=== PATIENT | female | born 1990 | race Caucasian/White ===

== ENCOUNTER 2021-08-07 21:42 | Emergency (ER) | payer OTHER ==
[~2021-08-07] VITALS: Ht 160 cm; Wt 59.0 kg
[2021-08-07] MEDS ORDERED: ZYPREXA PO (22:16)
[2021-08-07] MEDS ORDERED: VYVANSE50 MG PO (22:19)
[2021-08-07] MEDS ORDERED: WELLBUTRIN150 M1 PO (22:19)
[2021-08-07 22:30] LABS: HEMATOCRIT 37.3 % (37.0-47.0); HEMOGLOBIN 12.1 g/dl (12.0-16.0); IMMATURE GRANULOCYTES 0.1 % (0.0-5.0); MEAN CELL VOLUME 93.7 fL CALC (80.0-100.0); MEAN CORPUSCULAR HGB 30.4 pG CALC (26.0-32.0); MEAN CORPUSCULAR HGB CONC 32.4 g/dL CAL (32.0-36.0); NEUT# 7.7 thou/uL (2.00-7.15); RED BLOOD COUNT 3.98 mill/uL (4.20-5.60); RED CELL DISTRI WIDTH 12.7 % (11.5-15.5)
[2021-08-07 22:42] LABS: HCG SERUM/URINE (NEG/POS) NEGATIVE (NEGATIVE)
[2021-08-07 23:00] LABS: ACT PARTIAL THROMBO TIME 27.6 SECONDS (20.0-32.5); INTERNATIONAL NORMALIZED RATIO 0.9 RATIO (0.7-1.3); PROTHROMBIN TIME 9.9 SECONDS (9.0-12.5)
[2021-08-07 23:02] LABS: ALKALINE PHOSPHATASE 77 u/l (38-126); ANION GAP 11 (6-22 (CALC)); BILIRUBIN, TOTAL 0.3 mg/dL (0.0-1.4); BUN 8 mg/dL (7-17); BUN/CREATININE RATIO 11 (12-20 (CALC)); CARBON DIOXIDE 27 mmol/l (22-30); CHLORIDE 107 mmol/l (95-108); CREATININE 0.7 mg/dL (0.5-1.0); GFR > 60 ML/MIN (>=60 (CALC)); GFR FOR AFR.AMER. > 60 ML/MIN (>=60 (CALC)); POTASSIUM 3.8 mmol/l (3.5-5.1); SGOT/AST 22 u/l (14-36); SODIUM 142 mmol/l (137-146); TOTAL PROTEIN 6.8 g/dL (6.3-8.2)
[2021-08-07 23:11] LABS: D-DIMER 0.43 mg/L (0.19-0.60)
[2021-08-07] MEDS ORDERED: VOLTAREN75 MG PO (23:16)
[2021-08-07 23:17] VITALS: BP 120/62
== END 2021-08-07 23:28 | disposition home or self-care (01) ==
LOC: ED 21:42
PROVIDERS: Family Medicine
DX: R07.89 Other chest pain (principal); F17.210 Nicotine dependence, cigarettes, uncomplicated; Z87.01 Personal history of pneumonia (recurrent); Z20.822 Contact with and (suspected) exposure to COVID-19

== ENCOUNTER 2024-09-07 13:22 | Emergency (ER) | payer MEDICARE, MEDICAID ==
[~2024-09-07] VITALS: Ht 160 cm; Wt 49.9 kg
[~2024-09-07 13:22] MED LIST: VOLTAREN75 MG PO; VYVANSE50 MG PO; WELLBUTRIN150 M1 PO; ZYPREXA PO
[2024-09-07 14:49] VITALS: BP 113/63
[2024-09-07] MEDS ORDERED: Diph, Acellular Pertussis, Tet 0.5 ML/VIAL (Tdap) SDV IM STA (14:49)
[2024-09-07] MEDS ORDERED: AMOXICILLIN & POT CLAVULANATE 875 MG/TAB PO ONE (14:50)
[2024-09-07] MEDS ORDERED: NAPROXEN 250 MG/TAB PO ONE (14:55)
[2024-09-07] MEDS ORDERED: traMADol HCL 50 MG/TAB PO ONE (14:55)
[2024-09-07 15:01] VITALS: BP 116/76
[2024-09-07] MEDS ORDERED: NAPROXEN500 MG PO (15:22)
[2024-09-07] MEDS ORDERED: AMOX/K CLAV875 M1 PO (15:22)
[2024-09-07 15:27] VITALS: BP 116/76
== END 2024-09-07 15:35 | disposition home or self-care (01) ==
LOC: ED 13:22
DX: S61.451A Open bite of right hand, initial encounter (principal); W54.0XXA Bitten by dog, initial encounter; Y92.009 Unspecified place in unspecified non-institutional (private) residence as the place of occurrence of the external cause
CPT/HCPCS: 90715